=== PATIENT | male | born 1995 | race Caucasian/White ===

== ENCOUNTER 2019-04-22 20:54 | Emergency (ER) | payer BC ==
--- NOTE | 2019-04-22 21:23 | EDM.PDOC ---
ED HPI GENERAL MEDICAL PROBLEM - General Chief Complaint: Gastrointestinal Problem Stated Complaint: NON STOP VOMITTING Time Seen by Provider: 04/22/19 21:23 Source of Information: Reports: Patient History Limitations: Reports: No Limitations - History of Present Illness INITIAL COMMENTS - FREE TEXT/NARRATIVE: HISTORY AND PHYSICAL: History of present illness: Patient is a 23-year-old male presents to the ED with complaint of vomiting. Patient states that after eating qdoba for lunch today he has not been able to stop vomiting. He reports having diarrhea as well. He states the last episode of diarrhea he had some blood when he wiped due to the irritation from wiping all day. He denies fevers, chills, chest pain, shortness of breath, cough, abdominal pain, dysuria, or hematuria. He denies other sick contacts. He states he did take a zofran this afternoon and that did not help with his vomiting. Review of systems: As per history of present illness and below otherwise all systems reviewed and negative. Past medical history: As per history of present illness and as reviewed below otherwise noncontributory. Surgical history: As per history of present illness and as reviewed below otherwise noncontributory. Social history: No reported history of drug or alcohol abuse. Family history: As per history of present illness and as reviewed below otherwise noncontributory. Physical exam: General: Patient sitting comfortably in no acute distress and nontoxic appearing HEENT: Atraumatic, normocephalic, pupils reactive, negative for conjunctival pallor or scleral icterus, mucous membranes moist, throat clear, neck supple, nontender, trachea midline. No meningeal signs. Lungs: Clear to auscultation, breath sounds equal bilaterally, chest nontender. Heart: S1S2, regular, negative for clicks, rubs, or overt murmur. Abdomen: Soft, nondistended, nontender. Negative for masses or hepatosplenomegaly. Negative for costovertebral tenderness. No rigidity, rebound , guarding. Pelvis: Stable nontender. Genitourinary: Deferred. Rectal: Declined Extremities: Atraumatic, negative for cords or calf pain. Neurovascular unremarkable. Neuro: Awake, alert, oriented. Cranial nerves II through XII unremarkable. Cerebellum unremarkable. Motor and sensory unremarkable throughout. Exam nonfocal. Notes: Diagnostics: CBC, CMP, lipase Therapeutics: 1L NS IV 10mg Reglan IV Prescriptions: Impression: [] Plan: [] Definitive disposition and diagnosis as appropriate pending reevaluation and review of above. lower abdominal pain Pain Score (Numeric/FACES): 6 - Related Data Allergies Allergy/AdvReac Type Severity Reaction Status Date / Time No Known Allergies Allergy Verified 04/22/19 21:23 Home Meds: Home Meds . [No Known Home Meds] 04/22/19 [History] Course - Vital Signs Last Recorded V/S: Last Vital Signs Temp 98.4 F 04/22/19 21: Pulse 88 04/22/19 21:19 Resp 18 04/22/19 21:19 BP 119/74 04/22/19 21: Pulse Ox 99 04/22/19 21:19 - Orders/Labs/Meds Orders: Active Orders 24 hr Category Date Time Status Sodium Chloride 0.9% [Normal Saline] 1,000 ml Med 04/22/19 21:24 Ordered IV STAT Sodium Chloride 0.9% [Saline Flush] Med 04/22/19 21:24 Ordered 10 ml FLUSH ASDIRECTED PRN Sodium Chloride 0.9% [Saline Flush] Med 04/22/19 21:24 Ordered 2.5 ml FLUSH ASDIRECTED PRN Saline Lock Insert [OM.PC] Stat Oth 04/22/19 21:24 Ordered Medication Orders Sodium Chloride (Normal Saline) 1,000 mls @ 999 mls/hr IV STAT ONE Stop: 04/22/19 22:24 Last Admin: 04/22/19 21:42 Dose: 999 mls/hr Sodium Chloride (Saline Flush) 10 ml FLUSH ASDIRECTED PRN PRN Reason: Keep Vein Open Sodium Chloride (Saline Flush) 2.5 ml FLUSH ASDIRECTED PRN PRN Reason: Keep Vein Open Labs: Laboratory Tests 04/22/19 04/22/19 Range/Units 21:29 21:29 WBC 10.09 (4.0-11.0) K/uL RBC 5.77 (4.50-5.90) M/uL Hgb 18.6 H (13.0-17.0) g/dL Hct 50.4 H (38.0-50.0) % MCV 87.3 (80.0-98.0) fL MCH 32.2 H (27.0-32.0) pg MCHC 36.9 (31.0-37.0) g/dL RDW Std Deviation 40.3 (28.0-62.0) fl RDW Coeff of Jd 13 (11.0-15.0) % Plt Count 175 (150-400) K/uL MPV 11.40 (7.40-12.00) fL Neut % (Auto) 87.2 H (48.0-80.0) % Lymph % (Auto) 4.4 L (16.0-40.0) % Louisa % (Auto) 7.7 (0.0-15.0) % Eos % (Auto) 0.5 (0.0-7.0) % Baso % (Auto) 0.2 (0.0-1.5) % Neut # (Auto) 8.8 H (1.4-5.7) K/uL Lymph # (Auto) 0.4 L (0.6-2.4) K/uL Louisa # (Auto) 0.8 (0.0-0.8) K/uL Eos # (Auto) 0.1 (0.0-0.7) K/uL Baso # (Auto) 0.0 (0.0-0.1) K/uL Nucleated RBC % 0.0 /100WBC Nucleated RBCs # 0 K/uL Sodium 142 (136-148) mmol/L Potassium 4.4 (3.5-5.1) mmol/L Chloride 106 (98-107) mmol/L Carbon Dioxide 23.8 (21.0-32.0) mmol/L BUN 21 H (7.0-18.0) mg/dL Creatinine 1.2 (0.8-1.3) mg/dL Est Cr Clr Drug Dosing TNP Estimated GFR (MDRD) > 60.0 ml/min Glucose 123 H (74-106) mg/dL Calcium 9.2 (8.5-10.1) mg/dL Total Bilirubin 1.3 H (0.2-1.0) mg/dL AST 19 (15-37) IU/L ALT 54 (14-63) IU/L Alkaline Phosphatase 100 (46-116) U/L Total Protein 7.8 (6.4-8.2) g/dL Albumin 4.7 (3.4-5.0) g/dL Globulin 3.1 (2.6-4.0) g/dL Albumin/Globulin Ratio 1.5 (0.9-1.6) Lipase 101 (73-393) U/L Meds: Medications Generic Name Dose Route Start Last Admin Trade Name Freq PRN Reason Stop Dose Admin Sodium Chloride 1,000 mls @ 999 mls/hr 04/22/19 21:24 04/22/19 21:42 Normal Saline IV 04/22/19 22:24 999 mls/hr STAT ONE Administration Sodium Chloride 10 ml 04/22/19 21:24 Saline Flush FLUSH ASDIRECTED PRN Keep Vein Open Sodium Chloride 2.5 ml 04/22/19 21:24 Saline Flush FLUSH ASDIRECTED PRN Keep Vein Open Discontinued Medications Generic Name Dose Route Start Last Admin Trade Name Freq PRN Reason Stop Dose Admin Metoclopramide HCl 10 mg 04/22/19 21:24 04/22/19 21:42 Reglan IV 04/22/19 21:25 10 mg ONETIME ONE Administration Departure - Departure Time of Disposition: 22:10 Disposition: Home, Self-Care 01 Condition: Good Clinical Impression: Viral gastroenteritis - Discharge Information Referrals: PCP,None [Primary Care Provider] - Forms: ED Department Discharge Additional Instructions: The following information is given to patients seen in the emergency department who are being discharged to home. This information is to outline your options for follow-up care. We provide all patients seen in our emergency department with a follow-up referral. The need for follow-up, as well as the timing and circumstances, are variable depending upon the specifics of your emergency department visit. If you don't have a primary care physician on staff, we will provide you with a referral. We always advise you to contact your personal physician following an emergency department visit to inform them of the circumstance of the visit and for follow-up with them and/or the need for any referrals to a consulting specialist. The emergency department will also refer you to a specialist when appropriate. This referral assures that you have the opportunity for follow-up care with a specialist. All of these measure are taken in an effort to provide you with optimal care, which includes your follow-up. Under all circumstances we always encourage you to contact your private physician who remains a resource for coordinating your care. When calling for follow-up care, please make the office aware that this follow-up is from your recent emergency room visit. If for any reason you are refused follow-up, please contact the [facility] Emergency Department at and asked to speak to the emergency department charge nurse. [facility] [address] [place] [address] [facility] [address] [place] [address] Drink plenty of small sips of fluids throughout the day and bland food as tolerated Take Reglan as needed for nausea/vomiting Follow up with primary care provider Return to ED as needed as discussed Sepsis Event Note - Evaluation Sepsis Screening Result: No Definite Risk - Focused Exam Vital Signs: Vital Signs Temp Pulse Resp BP Pulse Ox 04/22/19 21:19 98.4 F 88 18 119/74 99 Date Exam was Performed: 04/22/19 Time Exam was Performed: 22:06 - My Orders Last 24 Hours: My Active Orders 04/22/19 21:24 Sodium Chloride 0.9% [Normal Saline] 1,000 ml IV STAT Sodium Chloride 0.9% [Saline Flush] 10 ml FLUSH ASDIRECTED PRN Sodium Chloride 0.9% [Saline Flush] 2.5 ml FLUSH ASDIRECTED PRN Saline Lock Insert [OM.PC] Stat - Assessment/Plan Last 24 Hours: My Active Orders 04/22/19 21:24 Sodium Chloride 0.9% [Normal Saline] 1,000 ml IV STAT Sodium Chloride 0.9% [Saline Flush] 10 ml FLUSH ASDIRECTED PRN Sodium Chloride 0.9% [Saline Flush] 2.5 ml FLUSH ASDIRECTED PRN Saline Lock Insert [OM.PC] Stat
[2019-04-22] MEDS ORDERED: Metoclopramide 10 MG/2 ML SDV IV ONE (21:24)
[2019-04-22] MEDS ORDERED: Sodium Chloride 0.9% 2.5 ML Syringe FLUSH PRN (21:24)
[2019-04-22] MEDS ORDERED: Sodium Chloride 0.9% 1,000 ML IV ONE (21:24)
[2019-04-22] MEDS ORDERED: Sodium Chloride 0.9% 10 ML Syringe FLUSH PRN (21:24)
[2019-04-22 21:56] LABS: BLOOD UREA NITROGEN,BUN 21 mg/dL (7.0-18.0); CARBON DIOXIDE,CO2 23.8 mmol/L (21.0-32.0); CHLORIDE,CL 106 mmol/L (98-107); GLUCOSE RANDOM 123 mg/dL (74-106); LIPASE 101 U/L (73-393); POTASSIUM,K 4.4 mmol/L (3.5-5.1); SODIUM,NA 142 mmol/L (136-148)
== END 2019-04-22 22:20 | disposition home or self-care (01) ==
LOC: MW.ED 20:54
DX: A08.4 Viral intestinal infection, unspecified (principal)
CPT/HCPCS: 36415; 80053; 83690; 85025; 96361; 96365; 99284; J2765; J7030

== ENCOUNTER 2019-04-27 06:34 | Day surgery (SDC) | payer BC ==
[~2019-04-27 06:34] MED LIST: Lactated Ringers 1,000 ML IV SCH; ceFAZolin 2 GM in Premix Bag 1 BAG IV ONE
[2019-04-27] MEDS ORDERED: Rocuronium 100 MG/10 ML Syringe ONE (07:08)
[2019-04-27] MEDS ORDERED: Propofol 200 MG/20 ML SDV ONE (07:08)
[2019-04-27] MEDS ORDERED: Midazolam 1 MG/ML 2 ML SDV ONE (07:08)
[2019-04-27] MEDS ORDERED: fentaNYL 250 MCG/5 ML SDV ONE (07:08)
[2019-04-27] MEDS ORDERED: Dexamethasone 4 MG/ML 5 ML MDV ONE (07:08)
[2019-04-27] MEDS ORDERED: Ondansetron 4 MG/2 ML SDV ONE (07:08)
--- NOTE | 2019-04-27 07:08 | PCM.PREANE ---
Preanesthetic Assessment - Anesthesia/Transfusion/Family Hx Anesthesia History: No Prior Anesthesia Family History of Anesthesia Reaction: No Transfusion History: No Prior Transfusion(s) Intubation History: Unknown - Review of Systems General: No Symptoms Pulmonary: No Symptoms Cardiovascular: No Symptoms Gastrointestinal: No Symptoms Neurological: No Symptoms Other: Reports: None - Physical Assessment NPO Status Date: 04/27/19 NPO Status Time: 06:00 Vital Signs: Last Vital Signs Temp 36.3 C 04/27/19 06:30 Pulse 68 04/27/19 06:30 Resp 16 04/27/19 06:30 BP 122/78 04/27/19 06:30 Pulse Ox 100 04/27/19 06:30 Height: 5 ft 10 in Weight: 82.1 kg ASA Class: 1 Mental Status: Alert & Oriented x3 Airway Class: Mallampati = 2 Dentition: Reports: Normal Dentition Thyro-Mental Finger Breadths: 3 Mouth Opening Finger Breadths: 2 (small mouth) ROM/Head Extension: Full Lungs: Clear to Auscultation, Normal Respiratory Effort Cardiovascular: Regular Rate, Regular Rhythm - Allergies Allergies/Adverse Reactions: Allergies Allergy/AdvReac Type Severity Reaction Status Date / Time No Known Allergies Allergy Verified 04/23/19 09:13 - Blood Blood Available: No - Anesthesia Plan Pre-Op Medication Ordered: None - Acknowledgements Anesthesia Type Planned: General Anesthesia Pt an Appropriate Candidate for the Planned Anesthesia: Yes Alternatives and Risks of Anesthesia Discussed w Pt/Guardian: Yes Pt/Guardian Understands and Agrees with Anesthesia Plan: Yes PreAnesthesia Questionnaire - Past Health History Medical/Surgical History: Denies Medical/Surgical History HEENT History: Reports: Other (See Below) Other HEENT History: wears glasses Gastrointestinal History: Reports: Hemorrhoids - Past Surgical History Head Surgeries/Procedures: Reports: None - SUBSTANCE USE Smoking Status *Q: Never Smoker Recreational Drug Use History: No - HOME MEDS Home Medications: Home Meds Imiquimod 1 applic TOP ASDIRECTED 04/23/19 [History] - CURRENT (IN HOUSE) MEDS Current Meds: Current Medications Lactated Ringer's (Ringers, Lactated) 1,000 mls @ 125 mls/hr IV ASDIRECTED [facility] Last Admin: 04/27/19 06:59 Dose: 125 mls/hr Discontinued Medications Cefazolin Sodium/Dextrose 2 gm (/ Premix) 50 mls @ 100 mls/hr IV ONETIME ONE Stop: 04/27/19 05:29
[2019-04-27] MEDS ORDERED: ceFAZolin/Dextrose,Iso-Osmotic 2 GM/50 ML Duplex Bag IV ONE (07:18)
[2019-04-27] MEDS ORDERED: Bupivacaine 0.5% 10 ML SDV ONE (07:26)
[2019-04-27] MEDS ORDERED: Bupivacaine 25%/EPINEPHrine/PF 30 ML ONE (07:27)
[2019-04-27] MEDS ORDERED: Lidocaine 2% Jelly 30 ML Tube ONE (08:09)
[2019-04-27] MEDS ORDERED: Glycopyrrolate 0.2 MG/ML SDV ONE (08:15)
[2019-04-27] MEDS ORDERED: Neostigmine Methylsulfate 1 MG/ML 5 ML Syringe ONE (08:15)
[2019-04-27] MEDS ORDERED: fentaNYL 100 MCG/2 ML SDV IVPUSH PRN (08:21)
[2019-04-27] MEDS ORDERED: Ketorolac 30 MG/ML SDV ONE (08:24)
--- NOTE | 2019-04-27 08:52 | PCM.OPNOTE ---
- General Post-Op/Procedure Note Date of Surgery/Procedure: 04/27/19 Operative Procedure(s): hemorrhoidectomy Findings: [id number] Pre Op Diagnosis: hemorrhiod Post-Op Diagnosis: Same Anesthesia Technique: General ET Tube Primary Surgeon: Christopher Patel Pathology: sent Complications: None Condition: Good
--- NOTE | 2019-04-27 09:03 | PCM.POSTAN ---
POST ANESTHESIA ASSESSMENT - MENTAL STATUS Mental Status: Alert, Oriented - VITAL SIGNS Vital Signs: Last Vital Signs Temp 36.4 C 04/27/19 08:34 Pulse 76 04/27/19 08:54 Resp 9 L 04/27/19 08:54 BP 109/68 04/27/19 08:54 Pulse Ox 100 04/27/19 08:54 - RESPIRATORY Respiratory Status: Respiratory Rate WNL, Airway Patent, O2 Saturation Stable - CARDIOVASCULAR CV Status: Pulse Rate WNL, Blood Pressure Stable - GASTROINTESTINAL GI Status: No Symptoms - PAIN Pain Score: 0 - POST OP HYDRATION Hydration Status: Adequate & Stable - OBSERVATIONS Free Text/Narrative:: no anesthesia problems
--- NOTE | 2019-04-27 09:24 | PCM48HPAN ---
Post Anesthesia Note - EVALUATION WITHIN 48HRS OF ANESTHETIC Vital Signs in Normal Range: Yes Patient Participated in Evaluation: Yes Respiratory Function Stable: Yes Airway Patent: Yes Cardiovascular Function Stable: Yes Hydration Status Stable: Yes Pain Control Satisfactory: Yes Nausea and Vomiting Control Satisfactory: Yes Mental Status Recovered: Yes Vital Signs: Last Vital Signs Temp 36.3 C 04/27/19 09:00 Pulse 68 04/27/19 09:00 Resp 16 04/27/19 09:00 BP 119/73 04/27/19 09:00 Pulse Ox 99 04/27/19 09:00 - COMMENTS/OBSERVATIONS Free Text/Narrative:: No anesthesia problems
--- NOTE | 2019-04-27 11:07 | OR ---
SURGEON: Christopher Patel MD DATE OF PROCEDURE: PREOPERATIVE DIAGNOSIS: Hemorrhoid. POSTOPERATIVE DIAGNOSIS: Hemorrhoid. PROCEDURE PERFORMED: Hemorrhoidectomy. PRIMARY SURGEON: Christopher Patel MD. COMPLICATIONS: None. FINDINGS: Appeared to have a large anal tag sticking out and was excised and there is no large internal hemorrhoid. DESCRIPTION OF PROCEDURE: The patient was taken to the operating room and placed in the supine position. Upon induction of general endotracheal anesthesia, the patient was repositioned into a rachelle-knife position and tape had been used to aid in the exposure. Time- out was being called, patient identified, procedure identified, antibiotic given. Procedure then started. Using a speculum and two-finger dilatation, examination in the anal opening, there were no large internal hemorrhoids. There was a large skin tag about the size of 6 mm sticking out at 6 o'clock position. This was held up and using a 15 blade was excised and mucosa repaired by use of 3-0 chromic and good hemostasis achieved. Lidocaine gel was inserted in the rectum for pain issue and local anesthetic was infiltrated. The patient was then repositioned in the supine position, awakened, extubated, and transferred to Recovery in hemodynamically stable condition. Dr. Patel was present through the whole procedure. DWAYNE / TAMMI /[id number]
== END 2019-04-27 09:34 | disposition home or self-care (01) ==
LOC: MW.SDS 06:34
PROVIDERS: ATTEND Surgery
DX: K64.4 Residual hemorrhoidal skin tags (principal)
CPT/HCPCS: 46220; J0690; J1100; J1885; J2001; J2250; J2405; J2704; J3010; J3490; J7120; 00902; 88304

== ENCOUNTER 2020-03-26 08:42 | Day surgery (SDC) | payer BC ==
[~2020-03-26 08:42] MED LIST changes: +Glycopyrrolate 0.2 MG/ML SDV ONE; +Lidocaine 2% 5 ML SDV ONE; +Midazolam 1 MG/ML 2 ML SDV ONE; +Propofol 200 MG/20 ML SDV ONE; -ceFAZolin 2 GM in Premix Bag 1 BAG IV ONE
--- NOTE | 2020-03-26 09:16 | PCM.PREANE ---
Preanesthetic Assessment - Anesthesia/Transfusion/Family Hx Anesthesia History: Prior Anesthesia Without Reaction Family History of Anesthesia Reaction: No Transfusion History: No Prior Transfusion(s) Intubation History: Unknown - Review of Systems General: No Symptoms Pulmonary: No Symptoms Cardiovascular: No Symptoms Neurological: No Symptoms Other: Reports: None - Physical Assessment NPO Status Date: 03/25/20 Height: 5 ft 10 in Weight: 87.09 kg ASA Class: 2 Mental Status: Alert & Oriented x3 Airway Class: Mallampati = 2 Dentition: Reports: Normal Dentition ROM/Head Extension: Full Lungs: Clear to Auscultation, Normal Respiratory Effort Cardiovascular: Regular Rate, Regular Rhythm - Allergies Allergies/Adverse Reactions: Allergies Allergy/AdvReac Type Severity Reaction Status Date / Time No Known Allergies Allergy Verified 03/26/20 09:12 - Blood Blood Available: No - Anesthesia Plan Pre-Op Medication Ordered: None - Acknowledgements Anesthesia Type Planned: General Anesthesia (tiva) Pt an Appropriate Candidate for the Planned Anesthesia: Yes Alternatives and Risks of Anesthesia Discussed w Pt/Guardian: Yes Pt/Guardian Understands and Agrees with Anesthesia Plan: Yes PreAnesthesia Questionnaire - Past Health History Medical/Surgical History: Denies Medical/Surgical History HEENT History: Reports: Other (See Below) Other HEENT History: wears glasses Cardiovascular History: Reports: None Respiratory History: Reports: None Gastrointestinal History: Reports: Hemorrhoids Genitourinary History: Reports: None Musculoskeletal History: Reports: None Neurological History: Reports: None Psychiatric History: Reports: None Endocrine/Metabolic History: Reports: None Hematologic History: Reports: None Immunologic History: Reports: None Oncologic (Cancer) History: Reports: None Dermatologic History: Reports: Psoriasis - Infectious Disease History Infectious Disease History: Reports: None - Past Surgical History Head Surgeries/Procedures: Reports: None HEENT Surgical History: Reports: None Cardiovascular Surgical History: Reports: None Respiratory Surgical History: Reports: None GI Surgical History: Reports: Other (See Below) Other GI Surgeries/Procedures: hemorrhoidectomy Male Surgical History: Reports: None Endocrine Surgical History: Reports: None Neurological Surgical History: Reports: None Musculoskeletal Surgical History: Reports: None Oncologic Surgical History: Reports: None - SUBSTANCE USE Tobacco Use Status *Q: Never Tobacco User - HOME MEDS Home Medications: Home Meds . [No Known Home Meds] 03/20/20 [History] - CURRENT (IN HOUSE) MEDS Current Meds: Current Medications Lactated Ringer's (Ringers, Lactated) 1,000 mls @ 125 mls/hr IV ASDIRECTED [facility] Last Admin: 03/26/20 09:11 Dose: 125 mls/hr Documented by: Discontinued Medications Glycopyrrolate (Robinul) Confirm Administered Dose 0.2 mg .ROUTE .STK-MED ONE Stop: 03/26/20 07:37 Lidocaine (Xylocaine-Mpf 2%) Confirm Administered Dose 5 ml .ROUTE .STK-MED ONE Stop: 03/26/20 07:37 Midazolam HCl (Versed 1 Mg/Ml) Confirm Administered Dose 2 mg .ROUTE .STK-MED ONE Stop: 03/26/20 07:36 Propofol (Diprivan 20 Ml) Confirm Administered Dose 400 mg .ROUTE .STK-MED ONE Stop: 03/26/20 07:36
--- NOTE | 2020-03-26 11:07 | PCM.OPNOTE ---
- General Post-Op/Procedure Note Date of Surgery/Procedure: 03/26/20 Operative Procedure(s): egd w bx. colonoscopy w bx Findings: see [id number] Pre Op Diagnosis: BRBPR Post-Op Diagnosis: Same Anesthesia Technique: Moderate Sedation Primary Surgeon: Christopher Patel Pathology: egd bx, pls check for yeast on ge junction specimen random colon bx Complications: None Condition: Good Free Text/Narrative:: Intake & Output 03/25/20 03/26/20 03/26/20 22:59 06:59 14:59 Intake Total 900 Balance 900
--- NOTE | 2020-03-26 11:08 | PCM.POSTAN ---
POST ANESTHESIA ASSESSMENT - MENTAL STATUS Mental Status: Alert, Oriented - VITAL SIGNS Vital Signs: Last Vital Signs Temp 36.4 C 03/26/20 09:13 Pulse 65 03/26/20 10:56 Resp 20 03/26/20 10:56 BP 98/55 L 03/26/20 10:56 Pulse Ox 96 03/26/20 10:56 - RESPIRATORY Respiratory Status: Respiratory Rate WNL, Airway Patent, O2 Saturation Stable - CARDIOVASCULAR CV Status: Pulse Rate WNL, Blood Pressure Stable - GASTROINTESTINAL GI Status: No Symptoms - POST OP HYDRATION Hydration Status: Adequate & Stable - OBSERVATIONS Free Text/Narrative:: There were no apparent anesthetic complications at this time. Discharge to phase one per criteria.
--- NOTE | 2020-03-26 11:26 | PCM48HPAN ---
Post Anesthesia Note - EVALUATION WITHIN 48HRS OF ANESTHETIC Vital Signs in Normal Range: Yes Patient Participated in Evaluation: Yes Respiratory Function Stable: Yes Airway Patent: Yes Cardiovascular Function Stable: Yes Hydration Status Stable: Yes Pain Control Satisfactory: Yes Nausea and Vomiting Control Satisfactory: Yes Mental Status Recovered: Yes Vital Signs: Last Vital Signs Temp 97.5 F 03/26/20 09:13 Pulse 65 03/26/20 10:56 Resp 20 03/26/20 10:56 BP 98/55 L 03/26/20 10:56 Pulse Ox 96 03/26/20 10:56
--- NOTE | 2020-03-26 18:16 | OR ---
SURGEON: Christopher Patel MD DATE OF PROCEDURE: 03/26/2020 PREOPERATIVE DIAGNOSES: Bright red blood per rectum and abdominal pain. POSTOPERATIVE DIAGNOSES: Bright red blood per rectum and abdominal pain. PROCEDURES PERFORMED: Esophagogastroduodenoscopy with biopsy and colonoscopy with biopsy. DESCRIPTION OF PROCEDURE: EGD: The patient was taken to the endoscopy room, and with the LOT BOSS, Diprivan was administered. A well-lubricated EGD scope was gently inserted through the oropharynx, down the esophagus, passing through the gastroesophageal junction, into the stomach. The mucosa was examined upon the passage. Any etiology will be noted. Once in the stomach, we continued to advance to the distal antrum, passed through the pylorus into the second portion of the duodenum. Again, the mucosa was examined for any abnormality and etiology. The scope was then retrieved back to the stomach and then retroflexed to look at the fundus of the stomach. If a biopsy was indicated, we will biopsy the antrum, body, and gastroesophageal junction. The air will be sucked out while the scope is retrieved to reduce the patient's discomfort. The patient tolerated the procedure well. There were no intraoperative complications. Dr. Patel was present through the whole procedure. Prior to surgery, a time-out had been called, the patient identified, procedure identified and antibiotic administered. The patient was taken to the endoscopy room. A time out was called, patient identified, and procedure identified. Diprivan was then administrated. Patient went from awake to sleep, hearing doctor talking or door closing is normal. Perineum inspection and digital examination were then performed. A well- lubricated colonoscope was gently inserted through the rectum, advanced past the rectosigmoid junction, the descending colon, splenic flexure, transverse colon, hepatic flexure, ascending colon, arrived to the cecum. Cecum was identified as dictated in the finding. Then the scope was carefully withdrawn while attention was paid to the mucosal surface for any abnormality. Air will be sucked out during the scope withdrawal. At the rectum, retroflexed to examine any rectal diseases, fistula or hemorrhoids. During mucosal examination, abnormality or polyp was noted; picture taken and biopsy performed. Patient tolerated procedure well. There were no intraoperative complications, and Dr. Patel was present throughout the whole procedure. FINDINGS: EGD findings: 1. The patient is easily sedated with LOT BOSS and Diprivan, the patient is soundly snoring. 2. Oropharynx and proximal esophagus are free of disease or stricture or inflammation. GE junction at 40 shows a flame-like salmon-colored change, consistent with acid reflux, probably would benefit from some stomach pill for 4 weeks. I will write him a script. Stomach rugae are normal in appearance. Antrum looks fine. Duodenum looks fine. There is a little bit bile in the stomach. No food particle, blood, or ulcer. Retroflexed look at the fundus of stomach, there is no hiatal hernia. Biopsy done at antrum, body, and GE junction at 40 and sucked out the gas while scope coming out. The patient probably would benefit from some PPIs for acid reflux. The patient has some white curdy stuff, concerned about yeast, also sent specimen for yeast. Colonoscopy findings: 1. The patient is easily sedated with LOT BOSS and Diprivan, the patient is soundly snoring. 2. Bowel prep is average to above average, very little liquid stool, no semi- formed stool, no stool ball. 3. Colon is rather straightforward. Cecum indicated by ileocecal fold, one-to- one indentation, appendiceal orifice. ScopeGuide is pointing south. Mucosa examined upon scope pulling out. The patient does not have diverticulosis, polyp, mass, growth, inflammation, stricture, ulceration, AV malformation, none of those. Stool is yellow in color. No blood encountered. Random biopsy done. The patient does have an anal tag at the anus, suggest some hemorrhoid problem or hemorrhoid surgery. The patient will benefit from repeat colonoscopy on an as-needed basis as the patient is 24 years old now. DWAYNE / TAMMI /[id number]
== END 2020-03-26 11:31 | disposition home or self-care (01) ==
LOC: MW.SDS 08:42
PROVIDERS: ATTEND Surgery
DX: K64.4 Residual hemorrhoidal skin tags (principal); K62.5 Hemorrhage of anus and rectum; R10.9 Unspecified abdominal pain; R19.4 Change in bowel habit; Z98.890 Other specified postprocedural states
CPT/HCPCS: 43239; 45380; 88305; 88312; J2001; J2250; J2704; J3490; J7120; 00813

== ENCOUNTER 2023-09-22 07:09 | Emergency (ER) | payer BC | END 2023-09-22 07:56 | disposition home or self-care (01) | LOC: MW.ED 07:09 | DX: R06.00 Dyspnea, unspecified (principal) | CPT/HCPCS: 99282; 99284 ==

== ENCOUNTER 2025-01-05 19:59 | Emergency (ER) | payer BC ==
[2025-01-05] MEDS ORDERED: Sodium Chloride 0.9% 2.5 ML Syringe FLUSH PRN (20:16)
[2025-01-05] MEDS ORDERED: Sodium Chloride 0.9% 10 ML Syringe FLUSH PRN (20:16)
[2025-01-05] MEDS: Ketorolac 30 MG/ML SDV IVPUSH ONE (20:26)
[2025-01-05] MEDS: Pantoprazole 80 MG in Sodium Chloride 0.9% 10 ML IVPUSH ONE (20:27)
[2025-01-05 20:33] LABS: BASOPHILS ABSOLUTE AUTO 0.04 K/uL (0.00-0.20); BASOPHILS PERCENT AUTO 0.5 % (0.0-1.0); EOSINOPHILS ABSOLUTE AUTO 0.18 K/uL (0.00-0.45); EOSINOPHILS PERCENT AUTO 2.4 % (0.0-6.0); IMMATURE GRAN ABSOLUTE AUTO 0.01 K/uL (0.00-0.05); IMMATURE GRAN PERCENT AUTO 0.1 % (0.0-0.4); LYMPHOCYTES ABSOLUTE AUTO 2.68 K/uL (1.00-4.80); LYMPHOCYTES PERCENT AUTO 35.7 % (24.0-44.0); MEAN PLATELET VOLUME 10.6 fL (9.4-12.4); MONOCYTES ABSOLUTE AUTO 0.75 K/uL (0.00-0.80); MONOCYTES PERCENT AUTO 10.0 % (0.0-8.0); NEUTROPHILS ABSOLUTE AUTO 3.85 K/uL (1.80-7.70); NEUTROPHILS PERCENT AUTO 51.3 % (41.0-71.0); NRBC ABSOLUTE 0.00 K/uL (0.00-0.02); NRBC PERCENT 0.0 /100WBC (0.0-0.2); PLATELET COUNT,PLT 232 K/uL (150-400); RED BLOOD CELL COUNT 5.21 M/uL (4.52-5.90); WHITE BLOOD CELL COUNT,WBC 7.51 K/uL (3.9-11.3)
[2025-01-05 20:45] LABS: INR 1.02 (0.86-1.11)
[2025-01-05] MEDS: Iopamidol 755 MG/ML 500 ML Multipack Bottle IVPUSH ONE (21:00)
[2025-01-05 21:07] LABS: A/G RATIO 1.3 (0.9-1.6); ALANINE AMINOTRANSFERASE,ALT 53.0 IU/L (14-63); ASPARTATE AMNIOTRANSFERASE,AST 17.0 IU/L (15-37); BILIRUBIN TOTAL 0.4 mg/dL (0.2-1.0); BLOOD UREA NITROGEN,BUN 15.0 mg/dL (7.0-18.0); CARBON DIOXIDE,CO2 24.5 mmol/L (21.0-32.0); CHLORIDE,CL 108.0 mmol/L (98-107); CREATININE 1.1 mg/dL (0.8-1.3); EST CRCL DRUG DOSING (CG) 97.3 mL/min; GLUCOSE RANDOM 112.0 mg/dL (74-106); POTASSIUM,K 3.5 mmol/L (3.5-5.1); PROTEIN TOTAL,TP 6.9 g/dL (6.4-8.2); SODIUM,NA 142.0 mmol/L (136-148)
[2025-01-05 21:08] LABS: ESTIMATED GFR 92.0 mL/min (>60)
[2025-01-05] MEDS: Cocoa Butter/Phenylephrine Rectal Supp RECTAL ONE (22:29)
== END 2025-01-05 22:36 | disposition home or self-care (01) ==
LOC: MW.ED 19:59
DX: K62.5 Hemorrhage of anus and rectum (principal); K59.09 Other constipation; R19.5 Other fecal abnormalities; R42 Dizziness and giddiness; Z79.899 Other long term (current) drug therapy
CPT/HCPCS: 36415; 74177; 80053; 85025; 85610; 85652; 86140; 96374; 96375; 99284; A9270; J1885; J2470; Q9967